=== PATIENT | male | born 1960 | race Caucasian/White ===

== ENCOUNTER 2024-04-05 06:46 | Day surgery (SDC) | payer BC, SELFPAY ==
--- NOTE | 2024-04-04 00:01 | EKG_ITS ---
[facility] Test Date: 2024-04-04 Pat Name: TODD MONTANO Department: Room: - Gender: Male Lead Caregiver: DAVID : [id number] Requested By: Gigi Avelar Order Number: [id number] Reading MD: Gigi Avelar Measurements Intervals [place] Rate: 81 P: 70 ID: [id number] QRS: -47 QRSD: 119 T: 63 QT: 377 QTc: 438 Interpretive Statements SINUS RHYTHM LEFT ANTERIOR FASCICULAR BLOCK NONSPECIFIC T-WAVE ABNORMALITY No previous ECG available for comparison [id number]
[2024-04-04 08:07] VITALS: BMI 34.9
[2024-04-04 09:22] LABS: Basophils # (Auto) 0.1 Thou/mm3 (0.0-0.2); Basophils % (Auto) 1 % (0-2.5); Eosinophils # (Auto) 0.3 Thou/mm3 (0.0-0.5); Eosinophils % (Auto) 3 % (0-10); Hematocrit 42.8 % (41.0-53.0); Hemoglobin 14.9 g/dL (13.5-16.0); Immature Granulocytes % (Auto) 0 % (0-0); Immature Granulocytes Auto 0.04 Thou/mm3 (0.00-0.00); Lymphocytes # (Auto) 1.5 Thou/mm3 (1.0-4.8); Lymphocytes % (Auto) 16 % (10-50); Mean Corpuscular HGB Conc 34.8 g/dl (31.0-37.0); Mean Corpuscular Hemoglobin 30.3 pg (25.0-35.0); Mean Corpuscular Volume 87 fL (80-100); Monocytes # (Auto) 0.8 Thou/mm3 (0.0-0.8); Monocytes % (Auto) 9 % (0-12); Neutrophils # (Auto) 6.5 Thou/mm3 (1.8-7.7); Neutrophils % (Auto) 71 % (37-80); Nucleated Red Blood Cell % 0 /100 WBC (0); Platelet Count 317 Thou/mm3 (140-440); RDW Standard Deviation 41.9 fL (35.1-43.9); Red Blood Count 4.91 Miln/mm3 (4.50-5.90); White Blood Count 9.2 Thou/mm3 (3.8-10.6)
[2024-04-04 09:35] LABS: Anion Gap 2 (7-16); BUN/Creatinine Ratio 12 Ratio (12-20); Blood Urea Nitrogen 11 mg/dL (9-23); Calcium 10.4 mg/dL (8.3-10.6); Carbon Dioxide 33.8 mMol/L (20.0-31.0); Chloride 103 mMol/L (98-107); Creatinine (Component) 0.9 mg/dL (0.6-1.3); Estimated Creatinine Clearance 123.7 mL/min (>60); Glucose 117 mg/dL (74-106); Osmolality,Calculated 277 (275-295); Potassium 3.4 mMol/L (3.4-5.1); Sodium 139 mMol/L (136-145); eGFR > 60 See Note
[2024-04-04 09:46] LABS: Partial Thromboplastin Time 27.9 Seconds (22.0-36.0); Prothrombin Time 10.5 Seconds (9.0-12.2)
[2024-04-05] VITALS (15 sets, daily range): BP systolic 125–178; BP diastolic 75–146; PULSE 74–89; RESP 15–24; TEMP 36.7–36.8; O2SAT 90–95; BMI 35.4
[2024-04-05] MEDS: SODIUM CHLORIDE 0.45 % 500 ML 100 ML IV (09:15)
--- NOTE | 2024-04-05 15:54 | ESOP_ITS ---
Cardiac Cath Procedure Procedure Name Date of procedure: 04/05/2024 SPREADER OPERATOR AUTOMATIC: Gigi Avlear MD PROCEDURE PERFORMED: 1. Left heart and right heart cardiac catheterization including right, left coronary angiograms and left ventriculogram - CPT 89612 2. Ultrasound-guided access of the right radial artery and right femoral vein - CPT 66642 3. Conscious sedation for 30 minutes - CPT 38813 Procedure Narrative HISTORY AND INDICATIONS: A 63-year-old male patient with past medical history of new onset systolic CHF EF 45%, HTN, DM2, HLD, obesity, family history of heart disease, had a positive nuclear stress test that showed mild decrease uptake in inferior and apical inferior segments suggesting possible ischemia with low EF and hence patient was scheduled for the elective left and right heart cardiac catheterization. Patient was explained the risk, benefits and alternatives of performing a left heart cardiac catheterization including the risk of bleeding, heart attack, stroke and in detail and the patient agreed for the procedure. Consent signed, placed in the chart and H&P updated. DESCRIPTION OF PROCEDURE: The patient was brought to the cardiac catheterization lab and all asceptic precautions were followed. Patient was given 1 Mg of Versed and 50 mcg of fentanyl for moderate conscious sedation. 2 mL of lidocaine was given in the right wrist. The right radial artery was accessed via the ultrasound guidance as well as micropuncture technique. A 6 Romanian glide sheath was introduced. A 10 ml of lidocaine was then injected in the right femoral area and right femoral vein vein was accessed with ultrasound guidance and micropuncture michelle hnique. A 7 yi femoral sheath was used. A 7 Romanian Live Oak-Carlos Enrique catheter was used with a Live Oak wire to direct into the right atrium with inflated balloon. Serial measurements of right atrium, right ventricle, pulmonary artery and pulmonary capillary wedge were taken severely with normal respiration as well as at end expiration as noted below. We then used a 6 Romanian TIG 4 catheter to perform the left and right coronary angiogram as well as a left ventriculogram which showed the following findings. [facility] findings: 1. Left ventricular ejection fraction was mildly low at 45 to 50% without any regional wall motion abnormalities. LVEDP was normal at 14 mmHg. There was no significant transvalvular aortic gradient. 2. Right dominant circulation left main artery is a large-caliber vessel without any significant stenosis. 3. LAD is a large sized artery with a medium size diagonals and does not show any significant disease. 4. LCx is a large sized artery with medium OM1 and small OM2 without any significant disease. 5. RCA is a large artery with nedium RPDA and RPL without any significant disease. [facility] findings: Mean RA pressure of 8 mmHg Artery pressure was 34 over 7 mmHg. Mean PA pressure was 23 mmHg. Main PCWP was 12 mmHg. LV pressure was 122/5 mmHg with the LVEDP of 14 mmHg. Normal cardiac output and cardiac units. A radial band was used to achieve the hemostasis of the right radial artery access and manual hemostasis for the right femoral vein. Patient will be monitored in the cardiac cost reduction engineer for the next 2 to 3 hours and will be sent to the telemetry floor. Patient recommended to follow-up with me in the office within 7 days after discharge. Complications: None Specimens: None Blood loss: Estimated 5 ml Summary/findings: 1. Non ischemic cardiomyopathy: LHC showed normal coronaries without any angiographically significant obstruction and few luminal irregularities. 2. LVEF was mildly low at 45 to 50% 3. LVEDP normal at 14mm hg. No significant transvalvular aortic gradient. 4. Normal right heart pressures with normal cardiac output and normal cardiac index Recommendations: 1. Recommend aggressive medical treatment and aggressive risk factor modification. 2. Patient recommended not to lift more than 7 pounds of weight for the next 7 days and follow-up with me in the office in 7 days Gigi Avelar MD Interventional Cardiology.
[2024-04-10 16:35] LABS: O2 Saturation (Cath Lab) 92 % (91-98); Puncture Site Aortic
[2024-04-10 16:36] LABS: O2 Saturation (Cath Lab) 72 % (91-98); Puncture Site Pulmonary Artery
== END 2024-04-05 13:14 | disposition home health service (06) ==
PROVIDERS: PCP Family Medicine; Referring Provider Internal Medicine Cardiovascular Disease; Visit Provider Internal Medicine Cardiovascular Disease
PROC: (CPT 93460; principal; 2024-04-05 08:30)
DX: I25.10 Atherosclerotic heart disease of native coronary artery without angina pectoris (principal); E78.2 Mixed hyperlipidemia; E11.9 Type 2 diabetes mellitus without complications; E66.9 Obesity, unspecified; E78.5 Hyperlipidemia, unspecified; I11.0 Hypertensive heart disease with heart failure; Z82.49 Family history of ischemic heart disease and other diseases of the circulatory system; Z01.810 Encounter for preprocedural cardiovascular examination
CPT/HCPCS: 93460; 36415; 80048; 82810; 85025; 85610; 85730; 93005; 99152; 99153; A4649; C1769; C1887; C1894; J0171; J0360; J0461; J1643; J2250; J2310; J2371; J2405; J3010; J3490; J7030; Q9967; J1644; J2305

== ENCOUNTER → 2024-08-21 | Outpatient (CLI) | payer BC, SELFPAY ==
[2024-08-21 14:35] LABS: Alanine Aminotransferase 14 U/L (10-49); Albumin, Serum 4.3 gm/dL (3.4-4.8); Albumin/Globulin Ratio 1.5 (1.2-2.2); Alkaline Phosphatase 104 U/L (46-116); Anion Gap 9 (7-16); Aspartate Amino Transferase 11 U/L (0-34); BUN/Creatinine Ratio 16 Ratio (12-20); Bilirubin,Total 0.5 mg/dL (0.3-1.2); Blood Urea Nitrogen 16 mg/dL (9-23); Calcium 10.2 mg/dL (8.3-10.6); Calcium (Corrected) 10.2 mg/dL (8.5-10.1); Carbon Dioxide 33.2 mMol/L (20.0-31.0); Chloride 97 mMol/L (98-107); Globulin 2.9 gm/dL (2.3-3.5); Glucose 132 mg/dL (74-106); Osmolality,Calculated 280 (275-295); Potassium 4.2 mMol/L (3.4-5.1); Sodium 139 mMol/L (136-145); Total Protein 7.2 gm/dL (5.7-8.2); eGFR > 60 See Note
[2024-08-21 14:40] LABS: Glucose Estimated Average 143 mg/dL (80-131); Hemoglobin A1C 6.6 % Hgb (4.8-6.0)
== END | disposition home or self-care (01) ==
PROVIDERS: PCP Family Medicine; Referring Provider Family Medicine; Visit Provider Family Medicine
DX: I10 Essential (primary) hypertension (principal); E11.9 Type 2 diabetes mellitus without complications
CPT/HCPCS: 36415; 80053; 83036

== ENCOUNTER → 2024-11-13 | Outpatient (CLI) | payer BC, SELFPAY ==
[2024-11-13 11:31] LABS: Basophils % (Auto) 1 % (0-2.5); Eosinophils # (Auto) 0.4 Thou/mm3 (0.0-0.5); Eosinophils % (Auto) 6 % (0-10); Hematocrit 43.9 % (41.0-53.0); Hemoglobin 15.2 g/dL (13.5-16.0); Immature Granulocytes % (Auto) 0 % (0-0); Immature Granulocytes Auto 0.02 Thou/mm3 (0.00-0.00); Lymphocytes # (Auto) 1.5 Thou/mm3 (1.0-4.8); Lymphocytes % (Auto) 22 % (10-50); Mean Corpuscular HGB Conc 34.6 g/dl (31.0-37.0); Mean Corpuscular Hemoglobin 30.6 pg (25.0-35.0); Mean Corpuscular Volume 88 fL (80-100); Monocytes # (Auto) 0.6 Thou/mm3 (0.0-0.8); Monocytes % (Auto) 9 % (0-12); Neutrophils # (Auto) 4.2 Thou/mm3 (1.8-7.7); Neutrophils % (Auto) 63 % (37-80); Nucleated Red Blood Cell % 0 /100 WBC (0); Platelet Count 293 Thou/mm3 (140-440); RDW Standard Deviation 42.8 fL (35.1-43.9); Red Blood Count 4.97 Miln/mm3 (4.50-5.90); White Blood Count 6.7 Thou/mm3 (3.8-10.6)
[2024-11-13 11:41] LABS: Glucose Estimated Average 146 mg/dL (80-131); Hemoglobin A1C 6.7 % Hgb (4.8-6.0); Prostate Specific Antigen 0.31 ng/mL (0-4.00)
[2024-11-13 11:56] LABS: Alanine Aminotransferase 17 U/L (10-49); Albumin, Serum 4.6 gm/dL (3.4-4.8); Albumin/Globulin Ratio 1.5 (1.2-2.2); Alkaline Phosphatase 95 U/L (46-116); Anion Gap 8 (7-16); Aspartate Amino Transferase 13 U/L (0-34); BUN/Creatinine Ratio 14 Ratio (12-20); Bilirubin,Total 0.6 mg/dL (0.3-1.2); Blood Urea Nitrogen 13 mg/dL (9-23); Calcium 9.2 mg/dL (8.3-10.6); Calcium (Corrected) 9.2 mg/dL (8.5-10.1); Carbon Dioxide 30.5 mMol/L (20.0-31.0); Cardiac Risk Estimate 4.1 RATIO (4.0-6.7); Chloride 103 mMol/L (98-107); Cholesterol 165 mg/dL (132-200); Creatinine (Component) 0.9 mg/dL (0.6-1.3); Glucose 115 mg/dL (74-106); HDL Cholesterol 40 mg/dL (40-60); LDL Cholesterol,Calculated 95 mg/dL (0-130); Magnesium 1.9 mg/dL (1.6-2.6); Osmolality,Calculated 282 (275-295); Potassium 3.8 mMol/L (3.4-5.1); Sodium 141 mMol/L (136-145); Total Protein 7.6 gm/dL (5.7-8.2); Triglycerides 150 mg/dL (30-150); eGFR > 60 See Note
== END | disposition home or self-care (01) ==
LOC: COPL 09:56
PROVIDERS: PCP Family Medicine; Referring Provider Internal Medicine Cardiovascular Disease; Visit Provider Internal Medicine Cardiovascular Disease
DX: Z12.11 Encounter for screening for malignant neoplasm of colon (principal); E11.9 Type 2 diabetes mellitus without complications; E78.2 Mixed hyperlipidemia; I10 Essential (primary) hypertension; N40.1 Benign prostatic hyperplasia with lower urinary tract symptoms; R94.39 Abnormal result of other cardiovascular function study
CPT/HCPCS: 36415; 80053; 80061; 83036; 83735; 84153; 85025

== ENCOUNTER → 2024-11-14 | Outpatient (CLI) | payer BC, SELFPAY ==
[2024-11-18 07:36] LABS: Fecal Globin Result NOT DETECTED (NOT DETECTED)
== END | disposition home or self-care (01) ==
LOC: SLDO 14:43
PROVIDERS: PCP Family Medicine; Referring Provider Family Medicine; Visit Provider Family Medicine
DX: Z12.11 Encounter for screening for malignant neoplasm of colon (principal)
CPT/HCPCS: 82274; G0328

== ENCOUNTER → 2025-02-17 | Outpatient (CLI) | payer BC, SELFPAY ==
[2025-02-17 10:15] LABS: Alanine Aminotransferase 13 U/L (10-49); Albumin, Serum 4.7 gm/dL (3.4-4.8); Albumin/Globulin Ratio 1.7 (1.2-2.2); Alkaline Phosphatase 108 U/L (46-116); Anion Gap 10 (7-16); Aspartate Amino Transferase 16 U/L (0-34); BUN/Creatinine Ratio 9 Ratio (12-20); Bilirubin,Total 0.4 mg/dL (0.3-1.2); Blood Urea Nitrogen 8 mg/dL (9-23); Calcium 10.2 mg/dL (8.3-10.6); Calcium (Corrected) 10.2 mg/dL (8.5-10.1); Carbon Dioxide 30.5 mMol/L (20.0-31.0); Chloride 101 mMol/L (98-107); Creatinine (Component) 0.9 mg/dL (0.6-1.3); Globulin 2.8 gm/dL (2.3-3.5); Glucose 152 mg/dL (74-106); Osmolality,Calculated 282 (275-295); Potassium 3.7 mMol/L (3.4-5.1); Sodium 141 mMol/L (136-145); Total Protein 7.5 gm/dL (5.7-8.2); eGFR > 60 See Note
[2025-02-17 10:25] LABS: Glucose Estimated Average 151 mg/dL (80-131); Hemoglobin A1C 6.9 % Hgb (4.8-6.0)
== END | disposition home or self-care (01) ==
LOC: COPL 08:38
PROVIDERS: PCP Family Medicine; Referring Provider Family Medicine; Visit Provider Family Medicine
DX: I10 Essential (primary) hypertension (principal); E11.9 Type 2 diabetes mellitus without complications
CPT/HCPCS: 36415; 80053; 83036

== ENCOUNTER → 2025-05-16 | Outpatient (CLI) | payer BC, SELFPAY ==
[2025-05-16 08:35] LABS: Glucose Estimated Average 146 mg/dL (80-131); Hemoglobin A1C 6.7 % Hgb (4.8-6.0)
== END | disposition home or self-care (01) ==
LOC: COPL 07:11
PROVIDERS: PCP Family Medicine; Referring Provider Family Medicine; Visit Provider Family Medicine
DX: I10 Essential (primary) hypertension (principal); E11.9 Type 2 diabetes mellitus without complications
CPT/HCPCS: 36415; 83036